=== PATIENT | female | born 1960 | race Two or more races ===

== ENCOUNTER → 2024-05-01 | Outpatient (CLI) | payer OTHER | END | disposition home or self-care (01) | LOC: RAD 14:28 | PROVIDERS: ATTEND Pediatrics Sports Medicine | DX: M77.32 Calcaneal spur, left foot (principal); M20.12 Hallux valgus (acquired), left foot; M25.572 Pain in left ankle and joints of left foot; M76.822 Posterior tibial tendinitis, left leg; Z68.25 Body mass index [BMI] 25.0-25.9, adult | CPT/HCPCS: 73700 ==